=== PATIENT | male | born 1970 | race African-American/Black ===

== ENCOUNTER 2022-10-11 23:03 | Emergency (ER) | payer OTHER ==
[2022-10-11 23:52] VITALS: BP 125/88; PULSE 117; RESP 18; TEMP 98.8; BMI 28.0
[2022-10-12] MEDS ORDERED: predniSONE 20 MG TABLET (UD) ONE (00:02)
== END 2022-10-12 00:19 | disposition home or self-care (01) ==
LOC: FER 23:03
DX: M10.061 Idiopathic gout, right knee (principal)
CPT/HCPCS: 99283-25

== ENCOUNTER 2022-10-17 06:58 | Emergency (ER) | payer OTHER ==
[2022-10-17 07:15] VITALS: BP 132/100; PULSE 94; RESP 16; TEMP 97; BMI 28.1
== END 2022-10-17 08:05 | disposition home or self-care (01) ==
LOC: FER 06:58
PROC: 0HQFXZZ Repair Right Hand Skin, External Approach (ICD-10-PCS; principal; 2022-10-17)
DX: S61.210A Laceration without foreign body of right index finger without damage to nail, initial encounter (principal); W26.0XXA Contact with knife, initial encounter; Y93.G1 Activity, food preparation and clean up
CPT/HCPCS: 99282-25

== ENCOUNTER 2022-10-25 18:03 | Emergency (ER) | payer OTHER ==
[2022-10-25] MEDS ORDERED: predniSONE 20 MG TABLET (UD) PO ONE (18:23)
[2022-10-25] MEDS ORDERED: predniSONE 20 MG TABLET (UD) ONE (18:25)
[2022-10-25 18:39] VITALS: BP 112/81; PULSE 102; RESP 18; TEMP 99; BMI 28.1
== END 2022-10-25 18:36 | disposition home or self-care (01) ==
LOC: FER 18:03
DX: M25.562 Pain in left knee (principal)
CPT/HCPCS: 99283-25

== ENCOUNTER 2022-10-30 20:50 | Emergency (ER) | payer OTHER ==
[2022-10-30 21:11] VITALS: BP 133/80; PULSE 100; RESP 15; TEMP 97.8; BMI 27.9
== END 2022-10-30 21:25 | disposition home or self-care (01) ==
LOC: FER 20:50
DX: Z48.02 Encounter for removal of sutures (principal)
CPT/HCPCS: 99281-25

== ENCOUNTER 2022-11-24 10:34 | Emergency (ER) | payer OTHER ==
[2022-11-24] MEDS ORDERED: predniSONE 20 MG TABLET (UD) PO ONE (11:46)
[2022-11-24 11:51] VITALS: BP 141/105; PULSE 100; RESP 16; TEMP 99.5; BMI 29.0
[2022-11-24] MEDS ORDERED: predniSONE 20 MG TABLET (UD) ONE (12:01)
== END 2022-11-24 12:23 | disposition home or self-care (01) ==
LOC: FER 10:34
DX: M10.062 Idiopathic gout, left knee (principal); M25.562 Pain in left knee
CPT/HCPCS: 99283-25

== ENCOUNTER 2024-02-03 08:48 | Emergency (ER) | payer OTHER ==
[2024-02-03] MEDS ORDERED: predniSONE 20 MG TABLET (UD) PO ONE (09:05)
[2024-02-03] MEDS ORDERED: predniSONE 20 MG TABLET (UD) ONE (09:08)
[2024-02-03 09:12] VITALS: BP 122/95; PULSE 97; RESP 18; TEMP 97.9; BMI 29.6
== END 2024-02-03 09:12 | disposition home or self-care (01) ==
LOC: FER 08:48
DX: M10.9 Gout, unspecified (principal); M25.572 Pain in left ankle and joints of left foot; M25.472 Effusion, left ankle
CPT/HCPCS: 99283-25

== ENCOUNTER 2024-02-25 09:45 | Emergency (ER) | payer OTHER ==
[2024-02-25 09:54] VITALS: BP 119/93; PULSE 90; RESP 20; TEMP 97.3; BMI 27.3
[2024-02-25] MEDS ORDERED: IBUPROFEN 600 MG TABLET (FP) PO ONE (09:56)
[2024-02-25] MEDS: IBUPROFEN 600 MG TABLET (FP) PO ONE (09:57)
[2024-02-25] MEDS ORDERED: predniSONE 20 MG TABLET (UD) ONE (11:01)
[2024-02-25] MEDS: predniSONE 20 MG TABLET (UD) PO ONE (11:01)
== END 2024-02-25 11:16 | disposition home or self-care (01) ==
LOC: FER 09:45
DX: M25.562 Pain in left knee (principal); M10.9 Gout, unspecified
CPT/HCPCS: 73564-TC-LT-FY; 99283-25

== ENCOUNTER 2024-04-02 11:07 | Emergency (ER) | payer OTHER ==
[2024-04-02 11:12] VITALS: BP 103/84; PULSE 72; RESP 20; TEMP 98.7; BMI 29.0
[2024-04-02] MEDS ORDERED: predniSONE 20 MG TABLET (UD) ONE (11:28)
[2024-04-02] MEDS: predniSONE 20 MG TABLET (UD) PO ONE (11:40)
== END 2024-04-02 11:55 | disposition home or self-care (01) ==
LOC: FER 11:07
DX: M10.022 Idiopathic gout, left elbow (principal); M25.522 Pain in left elbow
CPT/HCPCS: 99283-25

== ENCOUNTER 2024-05-30 04:45 | Emergency (ER) | payer OTHER ==
[2024-05-30 04:52] VITALS: BP 136/102; PULSE 105; RESP 20; TEMP 98.6; BMI 29.0
[2024-05-30] MEDS ORDERED: ACETAMINOPHEN 325 MG TABLET (FP) ONE (05:01)
[2024-05-30] MEDS ORDERED: predniSONE 20 MG TABLET (UD) ONE (05:01)
[2024-05-30] MEDS: predniSONE 20 MG TABLET (UD) PO ONE (05:02)
[2024-05-30] MEDS: ACETAMINOPHEN 325 MG TABLET (FP) PO ONE (05:02)
== END 2024-05-30 05:05 | disposition home or self-care (01) ==
LOC: FER 04:45
DX: M10.9 Gout, unspecified (principal); M25.571 Pain in right ankle and joints of right foot
CPT/HCPCS: 99283-25

== ENCOUNTER 2024-07-04 11:06 | Emergency (ER) | payer OTHER ==
[2024-07-04 11:27] VITALS: BP 137/71; PULSE 81; RESP 20; TEMP 98.2; BMI 29.2
[2024-07-04] MEDS ORDERED: predniSONE 20 MG TABLET (UD) ONE (11:36)
[2024-07-04] MEDS: predniSONE 20 MG TABLET (UD) PO ONE (11:39)
== END 2024-07-04 11:57 | disposition home or self-care (01) ==
LOC: FER 11:06
DX: M25.521 Pain in right elbow (principal)
CPT/HCPCS: 99283-25

== ENCOUNTER 2024-08-27 03:42 | Emergency (ER) | payer OTHER ==
[2024-08-27 03:49] VITALS: BP 115/101; PULSE 118; RESP 16; TEMP 98.4; BMI 28.6
[2024-08-27] MEDS ORDERED: predniSONE 20 MG TABLET (UD) ONE (03:50)
[2024-08-27] MEDS ORDERED: IBUPROFEN 600 MG TABLET (FP) PO ONE (03:50)
[2024-08-27] MEDS: predniSONE 20 MG TABLET (UD) PO ONE (03:50)
[2024-08-27] MEDS: IBUPROFEN 600 MG TABLET (FP) PO ONE (03:50)
== END 2024-08-27 03:57 | disposition home or self-care (01) ==
LOC: FER 03:42
DX: M10.9 Gout, unspecified (principal); M25.571 Pain in right ankle and joints of right foot; M79.89 Other specified soft tissue disorders
CPT/HCPCS: 99283-25

== ENCOUNTER 2025-05-10 13:23 | Emergency (ER) | payer OTHER ==
[2025-05-10 13:36] VITALS: BP 92/67; PULSE 105; RESP 18; TEMP 99.9; BMI 29.2
[2025-05-10] MEDS ORDERED: KETOROLAC TROMETHAMINE 15 MG/ML VIAL ONE (13:47)
[2025-05-10] MEDS: KETOROLAC TROMETHAMINE 15 MG/ML VIAL IVPUSH ONE (13:54)
[2025-05-10] MEDS: SODIUM CHLORIDE 1,000 ML IV STA (13:56)
[2025-05-10] MEDS: CEFTRIAXONE 1 GM in DEXTROSE 5%-WATER - 50 ML IVPB ONE (13:56)
[2025-05-10 14:34] LABS: ABSOLUTE IMMATURE GRANULOCYTES 0.02 x10^3/uL (0.0-0.031); BASOPHILS # 0.02 x10^3/uL (0.01-0.08); EOSINOPHIL % 0.1 % (0.8-7.0); EOSINOPHILS # 0.01 x10^3/uL (0.04-0.54); MCHC 31.8 g/dl (32.3-36.5); MEAN CELL VOLUME 98.8 fl (79.0-92.2); MEAN PLT VOLUME 11.5 fl (9.4-12.4); MONOCYTE # 0.90 x10^3/uL (0.30-0.82); MONOCYTE % 7.5 % (5.3-12.2); RDW 14.8 % (12.2-16.1)
[2025-05-10 14:45] LABS: ALK PHOS 93 U/L (45-117); CO2 28 mmol/L (21-32); CREATININE 1.7 mg/dl (0.6-1.3); GLUCOSE,RANDOM 280 mg/dl (74-106); SGOT/AST 28 U/L (15-37); SGPT/ALT 22 U/L (7-52); TOT PROT 7.5 g/dl (6.4-8.2)
[2025-05-10 17:31] LABS: HIV INTERPRETATION NEGATIVE (NEGATIVE)
[2025-05-10 17:32] LABS: HCV DIAGNOSTIC IN-HOUSE W/RFLX NON-REACTIVE (NONREACTIVE)
== END 2025-05-10 15:28 | disposition home or self-care (01) ==
LOC: FER 13:23
PROC: 3E03329 Introduction of Other Anti-infective into Peripheral Vein, Percutaneous Approach (ICD-10-PCS; principal; 2025-05-10)
PROC: 3E0333Z Introduction of Anti-inflammatory into Peripheral Vein, Percutaneous Approach (ICD-10-PCS; 2025-05-10)
DX: L03.114 Cellulitis of left upper limb (principal); M10.9 Gout, unspecified; M25.522 Pain in left elbow; R50.9 Fever, unspecified
CPT/HCPCS: 36415; 80053; 85025; 86803; 87389; 99284-25